=== PATIENT | female | born 1940 | race Caucasian/White ===

== ENCOUNTER 2022-04-16 12:47 | Emergency (ER) | payer OTHER ==
[~2022-04-16] VITALS: Ht 165.1 cm; Wt 77.1 kg
[2022-04-16] MEDS ORDERED: ADULT LOW DOSE81 M1 PO (13:19)
[2022-04-16] MEDS ORDERED: COZAAR100 MG PO (13:19)
== END 2022-04-16 15:09 | disposition home or self-care (01) ==
LOC: ER 12:47
DX: U07.1 COVID-19 (principal); I10 Essential (primary) hypertension

== ENCOUNTER 2022-04-18 10:35 | Outpatient (CLI) | payer OTHER ==
[~2022-04-18 10:35] MED LIST: ADULT LOW DOSE81 M1 PO; COZAAR100 MG PO
== END 2022-04-18 11:34 | disposition home or self-care (01) ==
LOC: ASH CLINIC 10:35
PROVIDERS: ATTEND General Practice
DX: U07.1 COVID-19 (principal)